=== PATIENT | male | born 2005 | race Caucasian/White ===

== ENCOUNTER 2023-08-26 10:53 | Emergency (ER) | payer MEDICAID ==
[2023-08-26 11:11] VITALS: O2SAT 99
--- NOTE | 2023-08-26 12:29 | XRAY Report ---
PROCEDURE: Knee 4+V LT INDICATIONS: skateboarding accident, left knee pain TECHNIQUE: 3 views of the knee was obtained. COMPARISON: None FINDINGS: Bones: Probable nondisplaced fracture through the posterior aspect of the tibial plateau associated with large joint effusion. No displacement Soft tissues: Large knee joint effusion. No suspicious soft tissue calcifications or masses. IMPRESSION: Probable nondisplaced fracture to the tibial plateau posteriorly only noted on the lateral view. Cons ider follow-up CT evaluation. Reviewed by: Michael Campoverde MD on 08/26/2023 11:27 AM DANNY Approved by: Michael Campoverde MD on 08/26/2023 11:27 AM DANNY Station ID: [id number]
[2023-08-26] MEDS: ACETAMINOPHEN 325 MG TABLET PO STA (13:49)
[2023-08-26] MEDS: oxyCODONE 5 MG TABLET PO STA (13:49)
--- NOTE | 2023-08-26 14:36 | ED Physician Documentation ---
PD HPI LOWER EXT INJURY - Stated complaint Stated Complaint: LT KNEE INJ - Chief complaint Chief Complaint: Ext Problem - Additional information Additional information: 17-year-old male presents emergency department for left knee pain. Patient said that yesterday while he was skateboarding he had a fall he said he had a very loud popping sensation and had a very hard time ambulating afterwards to the point where he feels like his leg cannot hold of his weight. He has severe pain today throughout the entire knee he said when he looked down after hearing the loud pop he feels like his knee and his leg were in the wrong direction. He has no history of knee trauma to that knee before no history of surgeries to that left limb. PD PAST MEDICAL HISTORY - Past Medical History Past Medical History: No - Past Surgical History Past Surgical History: No - Present Medications Home Medications: Ambulatory Orders Medication Instructions Recorded Confirmed Oxycodone HCl/Acetaminophen 1 each PO Q6HR PRN #12 tablet 08/26/23 [Percocet 5-325 mg Tablet] - Allergies Allergies/Adverse Reactions: Allergies Allergy/AdvReac Type Severity Reaction Status Date / Time No Known Drug Allergies Allergy Verified 08/26/23 11:08 - Social History Does the pt smoke?: No Smoking Status: Never smoker Does the pt drink ETOH?: Yes Does the pt have substance abuse?: No Substance Use and Type: Marijuana - Immunizations Immunizations are current?: Yes PD ED PE NORMAL - Vitals Vital signs reviewed: Yes - General General: Alert and oriented X 3, No acute distress, Well developed/nourished - Psych Psych: Normal mood, Normal affect PD ED PE EXPANDED - Extremities Extremities: Tenderness, Limited ROM, Swelling, Joint effusion, Left knee. No: Deformity, Bruising, Laceration, Ligament laxity, Red warm joint, Decreased/absent pulse (Negative anterior drawer test), Cold foot, Pale foot Results - Vitals Vitals: Vital Signs - 24 hr 08/26/23 08/26/23 08/26/23 11:06 17:08 18:16 Temperature 36.3 C L 36.4 C L Heart Rate 90 83 94 Respiratory 16 19 16 Rate Blood Pressure 156/82 H 141/75 H 125/86 H O2 Saturation 99 99 99 Oxygen O2 Source Room air - Rads (name of study) Knee x-ray Relevant Findings:: Final report received, EMP independent interpretation of test, Other (Probable nondisplaced fracture at the tibial plateau posteriorly) CT angio runoff of the left lower extremity Relevant Findings:: Final report received, EMP independent interpretation of test, Other (No popliteal laceration. Nondisplaced left medial tibial plateau fracture with lipohemarthrosis and edema in the popliteal fossa) PD Medical Decision Making - ED course ED course: 17-year-old male presents to the emergency department for left knee injury. Differentials include dislocation, patella injury, fracture, contusion, effusion. Based off patient story I cannot confidently rule out this being a knee dislocation. Initial x-rays do show a probable nondisplaced fracture of the tibial plateau. CT angio runoff was complete to make sure that there is no injury to the popliteal artery given patient's mechanism of injury. There was no vascular injury to the popliteal artery it does confirm a nondisplaced left medial tibial plateau fracture with associated lipohemarthrosis pain and edema to the popliteal fossa. I spoke with Dr. Aguilar, orthopedic surgeon and per his recommendations patient is placed in a knee immobilizer told to be nonweightbearing with crutches and told to follow-up with [facility] outpatient. I am prescribing a short course of short-acting opioid pain medication for this patient. 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 I have discussed that the opioids are for short term therapy only, and will not be refilled from the ED. Patient given strict ER return precautions told to follow-up with [facility] as well as primary care provider all questions answered safe for discharge with his mother. Departure - Departure Disposition: 01 Home, Self Care Clinical Impression: Lipohemarthrosis, Tibial plateau fracture, left Instructions: ED Fx Knee [facility] [Provider Group] Prescriptions: Oxycodone HCl/Acetaminophen [Percocet 5-325 mg Tablet] 1 each PO Q6HR PRN #12 tablet PRN Reason: Pain >8 Comments: Thank you for trusting us with your care. We have completed a CT of your left lower extremity as well as an x-ray and we are not seeing any vascular injuries which is very reassuring although we do see a nondisplaced fracture of the left posterior tibial plateau. We have placed you in a knee immobilizer here in the emergency department and I want you to not ambulate on your left knee until you are cleared by orthopedic surgeon. You can alternate between Tylenol and ibuprofen for pain and discomfort. I am prescribing a short course of narcotic pain medication for you. These are potentially dangerous and addictive medications that should be used carefully. These medications may constipate you. Take an jfwu-fuy-rrvaskh stool softener (docusate) twice daily with plenty of water while taking these medications. If you go 24 hours without a bowel movement, take yvim-olp-mjsirgh miralax, per package instructions. Do not drink or drive while taking these medications. If you received narcotic or sedating medications while in the emergency department, do not drive for 24 hours. Store this medication in a safe, secure place and out of reach of children. It is a violation of federal law to give or sell this medication to another person or to use in a manner other than prescribed. The ED will not refill narcotic prescriptions, including prescriptions lost or stolen. To dispose of unwanted medications: 1. [facility] at [address] in [place] has a medication drop box. They accept prescription medications (in pill form) Monday through Monday 9:00 a.m. to 5:00 p.m. 2. The [facility] [employer] accepts prescription medications (in pill form only) for disposal year round. Call for more information. 3. Contact the [facility] for the next [facility] sponsored prescription drug collection event. , [phone], or [phone]; Note that many narcotic pain relievers also contain Tylenol/acetaminophen. Please ensure that your total dose of acetaminophen from all sources does not exceed 3 g (3000 mg) per day. COMPARISON: None. FINDINGS: Nondisplaced fracture through the left posterior corner of the medial tibial plateau associated with large lipohemarthrosis joint effusion. Remainder of the osseous structures are unremarkable. Right lower extremity intact. Associated edema in the left mid popliteal fossa. No evidence of active bleeding or vascular injury throughout the exam IMPRESSION: 1. Nondisplaced left medial tibial plateau fracture with associated lipohemarthrosis pain and edema in the popliteal fossa, but without evidence of vascular injury or active bleeding. Forms: PCP List Discharge Date/Time: 08/26/23 18:17
[2023-08-26] MEDS ORDERED: iohexoL-300 150 ML BOTTLE ONE (14:37)
[2023-08-26] MEDS: iohexoL-300 150 ML BOTTLE IVP ONE (15:30)
--- NOTE | 2023-08-26 17:33 | CT Report ---
PROCEDURE: Angio Abdomen Runoff BL INDICATIONS: LLE popliteal eval for possible vascular injury CONTRAST: 125ml omni 300 TECHNIQUE: After the administration of intravenous contrast, a CT scan of the abdomen, pelvis and lower extremit ies (to the feet) was performed. Images were recorded and evaluated at appropriate window settings. R eformats: coronal and sagittal. For radiation dose reduction, the following was used: automated expos ure control, adjustment of mA and/or kV according to patient size. COMPARISON: None. FINDINGS: Nondisplaced fracture through the left posterior corner of the medial tibial plateau associated with large lipohemarthrosis joint effusion. Remainder of the osseous structures are unremarkable. Right lo wer extremity intact. Associated edema in the left mid popliteal fossa. No evidence of active bleeding or vascular injury t hroughout the exam IMPRESSION: 1. Nondisplaced left medial tibial plateau fracture with associated lipohemarthrosis pain and edema i n the popliteal fossa, but without evidence of vascular injury or active bleeding. Reviewed by: Michael Campoverde MD on 08/26/2023 4:32 PM DANNY Approved by: Michael Campoverde MD on 08/26/2023 4:32 PM [facility] Station ID: [id number]
[2023-08-26 18:17] VITALS: BP 125/86
== END 2023-08-26 18:17 | disposition home or self-care (01) ==
LOC: ED 10:53
DX: M25.062 Hemarthrosis, left knee (principal); S82.145A Nondisplaced bicondylar fracture of left tibia, initial encounter for closed fracture; V00.131A Fall from skateboard, initial encounter; Y93.51 Activity, roller skating (inline) and skateboarding
CPT/HCPCS: 73564; 75635; 99284; A9270

== ENCOUNTER 2023-12-20 06:11 | Day surgery (SDC) | payer MEDICAID ==
[~2023-12-20 06:11] MED LIST: ceFAZolin 2 GM VIAL ONE
[2023-12-20] MEDS: LACTATED RINGERS 1,000 ML IV ONE (06:30)
[2023-12-20] MEDS ORDERED: BUPIVACAINE 0.25% PF 30 ML VIAL ONE (06:40)
[2023-12-20] MEDS: GABAPENTIN 400 MG CAPSULE ONE (06:52)
[2023-12-20] MEDS: CELECOXIB 100 MG CAPSULE PO ONE (06:52)
[2023-12-20] MEDS ORDERED: fentaNYL 100 MCG/2 ML VIAL ONE ×2 (06:58→08:13)
[2023-12-20] MEDS ORDERED: LIDOCAINE-PF 2% 10 ML AMP SUBQ ONE (06:58)
[2023-12-20] MEDS ORDERED: MIDAZOLAM 2 MG/2 ML VIAL ONE (06:58)
[2023-12-20] MEDS ORDERED: PROPOFOL 200 MG/20 ML VIAL IVP ONE (06:58)
[2023-12-20] MEDS ORDERED: ROPIVACAINE 0.5% PF 20 ML VIAL ONE (07:06)
[2023-12-20] MEDS ORDERED: DEXAMETHASONE 10 MG/ML VIAL ONE (07:07)
[2023-12-20] MEDS ORDERED: SODIUM CHLORIDE 0.9% 10 ML VIAL IVP ONE (07:07)
[2023-12-20] MEDS ORDERED: SEVOFLURANE 250 ML LIQUID INH ONE (07:13)
[2023-12-20] MEDS ORDERED: MORPHINE 2 MG/ML CARPUJECT IVP PRN (07:17)
[2023-12-20] MEDS ORDERED: METOCLOPRAMIDE 10 MG/2 ML VIAL IVP PRN (07:17)
[2023-12-20] MEDS ORDERED: ONDANSETRON 4 MG/2 ML VIAL IVP PRN ×2 (07:17→12:22)
[2023-12-20] MEDS ORDERED: ATROPINE ABBOJECT 1 MG/10 ML SYRINGE IVP PRN (07:17)
[2023-12-20] MEDS ORDERED: ePHEDrine 50 MG/ML VIAL IVP PRN (07:17)
[2023-12-20] MEDS ORDERED: HYDROmorphone 0.5 MG/0.5 ML SYRINGE IVP PRN (07:17)
[2023-12-20] MEDS ORDERED: NALOXONE 0.4 MG/ML VIAL IVP PRN (07:17)
[2023-12-20] MEDS ORDERED: fentaNYL 100 MCG/2 ML VIAL IVP PRN (07:17)
--- NOTE | 2023-12-20 07:17 | ANESTHESIA ---
Pre-Anesthesia VS, & Labs - Diagnosis L ACL rupture - Procedure L ACL repair Vital Signs: Temp Pulse Resp BP Pulse Ox O2 Flow Rate 36.9 C 86 22 151/96 H 97 12/20/23 06:35 12/20/23 06:35 12/20/23 06:35 12/20/23 06:35 12/20/23 06:35 Height: 6 ft 2 in Weight (kg): 98.6 kg Body Mass Index: 27.8 BMI Classification: Overweight - NPO >8 hours - Lab Results Lab results reviewed: Yes Home Medications and Allergies Home Medications: Ambulatory Orders buPROPion [Wellbutrin Sr] 150 mg PO BID 12/20/23 buPROPion [Wellbutrin Sr] 150 mg PO BID 12/20/23 Allergies/Adverse Reactions: Allergies Allergy/AdvReac Type Severity Reaction Status Date / Time No Known Drug Allergies Allergy Verified 12/20/23 06:47 Anes History & Medical History - Anesthetic History Anesthesia Complications: reports: No previous complications Family history of Anesthesia Complications: Denies Family history of Malignant Hyperthermia: Denies - Medical History Cardiovascular: reports: None Pulmonary: reports: None Gastrointestinal: reports: None Urinary: reports: None Musculoskeletal: reports: None Endocrine/Autoimmune: reports: None Skin: reports: None Smoking Status: Never smoker Psychosocial: reports: Cannabis (recreational) - Surgical History Eyes Ears Nose Throat (EENT): reports: Tonsil/Adenoidectomy Other Past Surgical History: wisdom teeth Exam General: Alert, Oriented x3, Cooperative Dental: WNL Mouth Openin Fingerbreadth Neck Mobility: Normal Mallampati classification: III Thyromental Distance: 4-6 cm Respiratory: Lungs clear, Normal breath sounds, No respiratory distress Cardiovascular: Regular rate Neurological: Normal speech Mental/Cognitive Status: Alert/Oriented X3, Normal for patient Cognitive Status: Within normal limits Plan Anesthesia Type: General, Adductor Block Regional Block: Per Surgeon's request for Post Op pain control Consent for Procedure(s) Verified and Reviewed: Yes Code Status: Attempt Resuscitation ASA classification: 2-Mild systemic disease Is this case an emergency?: No
[2023-12-20] MEDS ORDERED: DEXAMETHASONE 4 MG/ML VIAL ONE (07:48)
[2023-12-20] MEDS ORDERED: ONDANSETRON 4 MG/2 ML VIAL ONE (07:48)
[2023-12-20] MEDS ORDERED: ACETAMINOPHEN 1,000 MG/100 ML 1,000 MG/100 ML BAG IV ONE (07:54)
[2023-12-20] MEDS ORDERED: LACTATED RINGERS 1,000 ML IV SCH (08:00)
[2023-12-20] MEDS ORDERED: HYDROmorphone 1 MG/ML CARPUJECT ONE (09:34)
[2023-12-20] MEDS: SODIUM CHLORIDE 0.9% 1,000 ML IV ONE ×2 (10:54→11:14)
[2023-12-20] MEDS ORDERED: SODIUM CHLORIDE FLUSH 0.9% 10 ML SYRINGE IVP PRN (11:32)
[2023-12-20] MEDS ORDERED: NS W/20 MEQ KCL 1,000 ML IV SCH (12:00)
[2023-12-20] MEDS ORDERED: ACETAMINOPHEN 500 MG TABLET PO SCH (12:00)
[2023-12-20] MEDS ORDERED: oxyCODONE 5 MG TABLET ONE (12:30)
[2023-12-20] MEDS: oxyCODONE 5 MG TABLET PO PRN (12:38)
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
[2023-12-20 14:12] VITALS: BP 136/97; O2SAT 96
--- NOTE | 2023-12-20 14:25 | ANESTHESIA POST OP EVALUATION ---
Anesthesia Post Eval - Post Anesthesia Eval Vitals: Last Vital Signs Temp 36.6 C 12/20/23 13:15 Pulse 100 12/20/23 13:15 Resp 16 12/20/23 13:15 BP 136/97 H 12/20/23 13:15 Pulse Ox 96 12/20/23 13:15 O2 Flow Rate CV Function Including HR & BP: Stable Pain Control: Satisfactory Nausea & Vomiting: Negative Mental Status: Baseline Respiratory Status: Airway Patent Hydration Status: Satisfactory Anesthesia Complications: None
[2023-12-20] MEDS ORDERED: SODIUM CHLORIDE FLUSH 0.9% 10 ML SYRINGE IVP SCH (17:00)
== END 2023-12-20 06:12 | disposition home or self-care (01) ==
LOC: SDS 06:11
PROVIDERS: ATTEND Orthopaedic Surgery
DX: S83.512A Sprain of anterior cruciate ligament of left knee, initial encounter (principal); X58.XXXA Exposure to other specified factors, initial encounter; Y93.51 Activity, roller skating (inline) and skateboarding; M65.9 Synovitis and tenosynovitis, unspecified; Z87.891 Personal history of nicotine dependence
CPT/HCPCS: 29888; A9270; J0131; J1170; J2795; J3490; J7120